=== PATIENT | male | born 1970 | race Caucasian/White ===

== ENCOUNTER 2018-02-22 11:35 | Emergency (ER) | payer BC ==
--- NOTE | 2018-02-22 11:50 | EDM.PDOC ---
ED HPI GENERAL MEDICAL PROBLEM - General Chief Complaint: Lower Extremity Injury/Pain Stated Complaint: [id number] RIGHT LEG Time Seen by Provider: 02/22/18 11:49 Source of Information: Reports: Patient, RN, RN Notes Reviewed History Limitations: Reports: No Limitations - History of Present Illness INITIAL COMMENTS - FREE TEXT/NARRATIVE: Pt presents to ER by POV with c/o right foot/ankle, and right knee pain sustained last evening when he jumped out of his boat (approx. 3') to the ground and "rolled" the right ankle. Pt thought maybe it was a bad sprain because it hurt too much to bear wt. This morning he still could not bear wt on it, so he came to the ER. Pt denies any other injury. He reports a history of a crush trauma to the Rt foot in 1996 which required ORIF. Onset Date: 02/21/18 Duration: Constant Quality: Reports: Ache Severity: Severe Improves with: Reports: Immobilization Worsens with: Reports: Other (Palpation, and attempted wt bearing), Movement Associated Symptoms: Reports: No Other Symptoms Right Leg Pain Score (Numeric/FACES): 9 - Related Data Allergies Allergy/AdvReac Type Severity Reaction Status Date / Time No Known Allergies Allergy Verified 02/22/18 11:53 Home Meds: Home Meds Carvedilol 02/22/18 [History] Furosemide [Lasix] 02/22/18 [History] Lisinopril [Prinivil] 02/22/18 [History] Potassium Chloride 10 meq PO 02/22/18 [History] Past Medical History Cardiovascular History: Reports: CAD, High Cholesterol, Hypertension Musculoskeletal History: Reports: Fracture (Rt foot in 1996), Osteoarthritis ( Rt foot) Social & Family History - Family History Family Medical History: Noncontributory - Living Situation & Occupation Occupation: Employed Review of Systems - Review of Systems Review Of Systems: ROS reveals no pertinent complaints other than HPI. ED EXAM, GENERAL - Physical Exam Exam: See Below Exam Limited By: No Limitations General Appearance: Alert, WD/WN, No Apparent Distress Throat/Mouth: Normal Voice, No Airway Compromise Head: Atraumatic, Normocephalic Neck: Normal Inspection, Full Range of Motion Respiratory/Chest: No Respiratory Distress Cardiovascular: Normal Peripheral Pulses Peripheral Pulses: 2+: Posterior Tibial (L), Posterior Tibial (R), 3+: Dorsalis Pedis (L) Back Exam: Normal Inspection, Full Range of Motion. No: Paraspinal Tenderness, Vertebral Tenderness Extremities: No Pedal Edema, Normal Capillary Refill, Joint Swelling (Rt lateral ankle), Limited Range of Motion (Rt ankle). No: Increased Warmth, Redness Neurological: Alert, Oriented, Normal Cognition, No Motor/Sensory Deficits Psychiatric: Normal Mood Skin Exam: Warm, Dry, Intact ED TRAUMA EXTREMITY PROCEDURES - Splinting Right Lower Extremity Splint Site: Rt ankle Pre-Procedure NV Status: Normal Post-Procedure NV Status: Normal Splint Material: Fiberglass Splint Design: Posterior Applied & Form Fitted By: Nurse Provider Post-Splint Application NV Check: NV Status Normal, Good Position Complications: No Course - Vital Signs Last Recorded V/S: Last Vital Signs Temp 36.4 C 02/22/18 11:39 Pulse 75 02/22/18 11:39 Resp 15 02/22/18 11:39 BP 133/77 02/22/18 11:39 Pulse Ox 100 02/22/18 11:39 - Orders/Labs/Meds Orders: Active Orders 24 hr Category Date Time Status Splinting [RC] ASDIRECTED Care 02/22/18 12:17 Active DME for Discharge [COMM] Routine Oth 02/22/18 12:17 Ordered Meds: Medications Discontinued Medications Generic Name Dose Route Start Last Admin Trade Name Freq PRN Reason Stop Dose Admin Hydrocodone Bitart/Acetaminophen 1 tab 02/22/18 12:17 02/22/18 12:20 [place] 325-10 Mg PO 02/22/18 12:18 1 tab ONETIME ONE Administration - Radiology Interpretation Free Text/Narrative:: XR Rt knee: no fracture, see Rad. report. XR Rt ankle: distal fibula fracture, see Rad. report. XR Rt foot: chronic appearing post-traumatic arthritic changes and evidence of multiple old fractures; see Rad. report. Departure - Departure Time of Disposition: 12:27 Disposition: Home, Self-Care 01 Condition: Good Clinical Impression: Closed right ankle fracture Qualifiers: Encounter type: initial encounter Qualified Code(s): S82.891A - Other fracture of right lower leg, initial encounter for closed fracture Right knee pain Qualifiers: Chronicity: acute Qualified Code(s): M25.561 - Pain in right knee - Discharge Information Instructions: Crutch Use, Adult, [id number], Knee Pain, Adult, Ankle Fracture , [id number] Forms: ED Department Discharge Additional Instructions: Rx: Hydrocodone APAP 5mg/325mg *Do not drive or work while under the influence of this medication. Do not drink alcohol with this medication. Use crutches to be non-weight bearing on the right ankle. Do not remove the splint. Call [phone] today to schedule an orthopedic appointment at [facility] in [place]. - My Orders Last 24 Hours: My Active Orders 02/22/18 12:17 Splinting [RC] ASDIRECTED DME for Discharge [COMM] Routine - Assessment/Plan Last 24 Hours: My Active Orders 02/22/18 12:17 Splinting [RC] ASDIRECTED DME for Discharge [COMM] Routine
[2018-02-22] MEDS: Acetaminophen/HYDROcodone 325-10 MG Tab PO ONE (12:20)
== END 2018-02-22 13:04 | disposition home or self-care (01) ==
LOC: DL.ED 11:35
DX: S82.61XA Displaced fracture of lateral malleolus of right fibula, initial encounter for closed fracture (principal); M25.561 Pain in right knee; I10 Essential (primary) hypertension; E78.00 Pure hypercholesterolemia, unspecified; I25.10 Atherosclerotic heart disease of native coronary artery without angina pectoris; Z79.899 Other long term (current) drug therapy; X50.1XXA Overexertion from prolonged static or awkward postures, initial encounter; W16.722A Jumping or diving from boat striking bottom causing other injury, initial encounter
CPT/HCPCS: 29515; 73562-RT; 73610-RT; 73630-RT; 99284; A9270-GY

== ENCOUNTER 2025-04-24 09:55 | Emergency (ER) | payer BC, OTHER ==
[2025-04-24] MEDS ORDERED: Sodium Chloride 0.9% 10 ML Syringe FLUSH PRN (10:13)
[2025-04-24 10:24] LABS: PLATELET COUNT,PLT 166 10^3/uL (150-450); RED BLOOD CELL COUNT 3.97 10^6/uL (4.6-6.2); WHITE BLOOD CELL COUNT,WBC 25.4 10^3/uL (5.0-10.0)
[2025-04-24] MEDS: Ondansetron 4 MG/2 ML SDV IVPUSH ONE (10:27)
[2025-04-24 10:29] LABS: BASOPHILS PERCENT AUTO 0.3 % (0.0-1.0); EOSINOPHILS PERCENT AUTO 2.5 % (1.0-3.0); LYMPHOCYTES PERCENT AUTO 7.7 % (20.5-50.1); MONOCYTES PERCENT AUTO 7.6 % (2-8); NEUTROPHILS PERCENT AUTO 81.9 % (42.2-75.2)
[2025-04-24 10:34] LABS: A/G RATIO 0.9; ALANINE AMINOTRANSFERASE,ALT 32 U/L (16-63); ASPARTATE AMNIOTRANSFERASE,AST 21 U/L (15-37); BILIRUBIN TOTAL 1.2 mg/dL (0.2-1.0); BLOOD UREA NITROGEN,BUN 17 mg/dL (7-18); CREATININE 1.36 mg/dL (0.70-1.30); GLUCOSE RANDOM 149 mg/dL (70-99); PROTEIN TOTAL,TP 7.2 g/dL (6.4-8.2)
[2025-04-24 10:39] LABS: INR 1.1 (0.9-1.2); LACTIC ACID 3.4 mmol/L (0.4-2.0)
[2025-04-24 10:41] LABS: B-TYPE NATRIURETIC PEPTIDE,BNP 56 pg/ml (0-100)
[2025-04-24 11:01] LABS: CHLORIDE,CL 88 mmol/L (98-107); POTASSIUM,K 3.0 mmol/L (3.5-5.1); SODIUM,NA 133 mmol/L (136-145)
[2025-04-24 11:02] LABS: CARBON DIOXIDE,CO2 34 mmol/L (21-32); ESTIMATED GFR 62 mL/min (>=60)
[2025-04-24] MEDS: Iopamidol 612 MG/ML 100 ML Bottle IVPUSH ONE (11:07)
[2025-04-24 11:09] LABS: BAND PERCENT MAN 5 %; EOSINOPHILS PERCENT MAN 3 % (1-3); LYMPHOCYTES PERCENT MAN 11 % (20-50); MONOCYTES PERCENT MAN 4 % (2-8); SEG NEUTROPHILS PERCENT MAN 77 % (42-75)
[2025-04-24] MEDS: Potassium Chloride 10 MEQ Tab.ER PO ONE (11:25)
[2025-04-24] MEDS: Magnesium Sulfate 2 GM/50 mL 2 GM in Premix Bag 1 BAG IV ONE (11:38)
[2025-04-24 11:59] LABS: APPEARANCE,URINE CLEAR (CLEAR); GLUCOSE,URINE NEGATIVE (NEGATIVE); OCCULT BLOOD,URINE NEGATIVE (NEGATIVE)
[2025-04-24 12:15] LABS: EPITHELIAL CELLS,URINE FEW /HPF (NOT SEEN)
[2025-04-24] MEDS: Calcium Gluconate 10% 1 GM/10 ML SDV IVPUSH ONE (12:39)
== END 2025-04-24 13:10 | disposition home or self-care (01) ==
LOC: DL.ED 09:55
DX: K85.20 Alcohol induced acute pancreatitis without necrosis or infection (principal); I25.10 Atherosclerotic heart disease of native coronary artery without angina pectoris; E78.00 Pure hypercholesterolemia, unspecified; I10 Essential (primary) hypertension; E83.51 Hypocalcemia; E87.6 Hypokalemia; E83.42 Hypomagnesemia; Z79.899 Other long term (current) drug therapy
CPT/HCPCS: 36415; 74177; 80053; 81001; 82272; 83605; 83690; 83735; 83880; 84484; 85025; 85610; 86140; 93005; 93010; 96361; 96365; 96375; 99285; A9270; J0612; J2405; J3475; J7030; Q9967